=== PATIENT | male | born 2000 | race Caucasian/White ===

== ENCOUNTER 2025-01-20 19:04 | Emergency (ER) | payer OTHER ==
[~2025-01-20] VITALS: Ht 170.2 cm; Wt 74.5 kg
[2025-01-20 19:34] VITALS: TEMP 98
[2025-01-20] MEDS: ACETAMINOPHEN 500 MG TABLET PO ONE (23:13)
[2025-01-20] MEDS: IBUPROFEN 400 MG TABLET PO ONE (23:13)
[2025-01-20 23:39] VITALS: BP 137/75; PULSE 76; RESP 18; O2SAT 97
== END 2025-01-21 00:03 ==
LOC: EMS 19:04
DX: S90.32XA Contusion of left foot, initial encounter (principal); S50.01XA Contusion of right elbow, initial encounter; Y04.8XXA Assault by other bodily force, initial encounter; Y93.89 Activity, other specified; Y92.89 Other specified places as the place of occurrence of the external cause; Y99.8 Other external cause status
CPT/HCPCS: 71045; 99284

== ENCOUNTER 2025-05-14 19:33 | Emergency (ER) | payer OTHER ==
[~2025-05-14] VITALS: Ht 170.2 cm; Wt 75.0 kg
[2025-05-14] MEDS: LIDOCAINE 1% 10 ML VIAL SQ ONE (20:15)
[2025-05-14] MEDS: BACITRACIN 0.9 GM PACKET OINTMENT TP ONE (20:15)
[2025-05-14] MEDS: ACETAMINOPHEN 500 MG TABLET PO ONE (20:15)
[2025-05-14] MEDS: PERTUSS(ACELL),DIPH,TET/PF 0.5 ML SYRINGE [ADULT] IM. ONE (20:17)
[2025-05-14] MEDS: CEPHALEXIN MONOHYDRATE 500 MG CAPSULE PO ONE (20:52)
[2025-05-14 21:02] VITALS: BP 129/68; PULSE 75; RESP 18; TEMP 97.3; O2SAT 98
== END 2025-05-14 22:17 ==
LOC: EMS 19:33
DX: S01.81XA Laceration without foreign body of other part of head, initial encounter (principal); Y04.0XXA Assault by unarmed brawl or fight, initial encounter; Y93.89 Activity, other specified; Y92.149 Unspecified place in prison as the place of occurrence of the external cause; Y99.8 Other external cause status
CPT/HCPCS: 99283; 90715; 90471; 12011; J3490